=== PATIENT | male | born 1970 | race Caucasian/White ===

== ENCOUNTER 2022-01-28 17:42 | Emergency (ER) | payer OTHER, SELFPAY ==
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
--- NOTE | ~2022-01-28 | XR_ITS ---
EXAMINATION: XR hand LT min 3V DATE: 01/28/2022 18:25 INDICATION: Left thumb injury TECHNIQUE: Posteroanterior, oblique and lateral views of the left hand were obtained. COMPARISON: None. FINDINGS: Alignment is normal. No fracture. Mild osteoarthritis at the first carpometacarpal, metacarpophalange al and interphalangeal joints. 1-2 mm metallic foreign body projecting over the relatively superficia l soft tissues palmar to the capitate. Soft tissues are otherwise unremarkable. IMPRESSION: 1. 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 No acute osseous abnormality. 2. Small metallic foreign body projecting over the palmar soft tissues near the base of the hand. Reviewed, dictated and finalized at location A. IMPRESSION: 1. 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 No acute osseous abnormalit y. 2. Small metallic foreign body projecting over the palmar soft tissues near the base of the hand.
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
[2022-01-28 17:43] VITALS: BP 168/111; PULSE 98; RESP 18; TEMP 37.3; O2SAT 100
[2022-01-28 17:47] VITALS: BP 151/92; PULSE 95; RESP 22; O2SAT 99
[2022-01-28 18:12] VITALS: PULSE 95
[2022-01-28] MEDS: SODIUM CHLORIDE 0.9% IV 1,000 ML 999 ML IV CONT (18:29)
[2022-01-28 18:32] LABS: Basophils Absolute Auto 0.1 K/mm3 (0.0-0.1); Basophils Percent Auto 1.2 % (0.2-1.2); Eosinophils Absolute Auto 0.2 K/mm3 (0-0.3); Eosinophils Percent Auto 2.5 % (0-4.4); Hemoglobin 15.8 g/dL (14.0-18.0); Immature Granulocyte Absolute 0.13 K/mm3 (0.00-0.031); Immature Granulocyte Percent A 1.7 % (0-0.5); Lymphocytes Absolute Auto 2.55 K/mm3 (0.9-3.2); Lymphocytes Percent Auto 34.2 % (18.3-44.2); Mean Corpuscular HGB Conc 34.3 g/dl (32-36); Mean Corpuscular Hemoglobin 30.6 pg (26-34); Mean Platelet Volume 8.7 fl (7.4-10.4); Monocytes Absolute Auto 0.7 K/mm3 (0.1-0.6); Neutrophils Absolute Auto 3.8 K/mm3 (1.3-6.7); Neutrophils Percent Auto 51.4 % (45.5-73.1); Platelet Count Result 229 k/mm3 (150-375); Red Blood Count 5.17 M/mm3 (4.6-6.20); Red Cell Distribution Width 12.8 % (11.5-14.5); White Blood Count 7.5 K/mm3 (4.5-10.0)
[2022-01-28 18:42] LABS: Alanine Aminotransferase 23 U/L (6-50); Albumin Level 4.6 g/dL (3.5-5.1); Alkaline Phosphatase 74 U/L (38-126); Anion Gap 9 mmol/L (8-16); Aspartate Amino Transferase 43 U/L (17-59); Bilirubin,Total 0.7 mg/dL (0.2-1.3); Blood Urea Nitrogen 16 mg/dL (9-20); Calcium 9.5 mg/dL (8.4-10.2); Carbon Dioxide 28 mmol/L (22-30); Chloride 102 mmol/L (98-107); Estimated CRCL calculation 71 ml/min; Estimated Glomerular Filt Rate > 60; Glucose 110 mg/dL (65-110); Potassium 3.8 mmol/L (3.4-5.0); Sodium 139 mmol/L (137-145)
[2022-01-28] MEDS: TETANUS,DIPHTHERIA,AC PERTUSSIS ADULT (0.5 ML) BOOSTRIX IM (18:44)
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
--- NOTE | 2022-01-28 19:01 | PC.NURSE ---
Pt removed his c collar.
[2022-01-28 20:14] VITALS: PULSE 77; RESP 13; O2SAT 99
[2022-01-28] MEDS: MORPHINE SULFATE (*CRX) 4 MG/ML INJ IV PUSH (20:17)
[2022-01-28] MEDS: ONDANSETRON INJ 4 MG/2 ML VIAL IV PUSH (20:17)
[2022-01-28 22:05] VITALS: BP 128/73; PULSE 91; RESP 18; O2SAT 95
== END 2022-01-28 22:10 | disposition home or self-care (01) ==
PROVIDERS: Emergency Provider General Practice
DX: S02.2XXA Fracture of nasal bones, initial encounter for closed fracture (principal); S32.592A Other specified fracture of left pubis, initial encounter for closed fracture; S61.012A Laceration without foreign body of left thumb without damage to nail, initial encounter; S01.511A Laceration without foreign body of lip, initial encounter; S80.212A Abrasion, left knee, initial encounter; S60.512A Abrasion of left hand, initial encounter; S01.21XA Laceration without foreign body of nose, initial encounter; S60.552A Superficial foreign body of left hand, initial encounter; Z23 Encounter for immunization; M47.812 Spondylosis without myelopathy or radiculopathy, cervical region; K05.6 Periodontal disease, unspecified; M18.9 Osteoarthritis of first carpometacarpal joint, unspecified; M19.042 Primary osteoarthritis, left hand; V23.4XXA Motorcycle driver injured in collision with car, pick-up truck or van in traffic accident, initial encounter
CPT/HCPCS: 12001; 36415; 70450; 70486; 71045; 72125; 73130; 73502; 73564; 74177; 80053; 85025; 90471; 90714; 90715; 96361; 96374; 96375; 99284; J2270; J2405; J7030; Q9967

== ENCOUNTER 2022-02-05 10:21 | Emergency (ER) | payer OTHER, SELFPAY ==
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
[2022-02-05 10:33] VITALS: BP 145/89; PULSE 76; RESP 16; TEMP 36.3; O2SAT 99
== END 2022-02-05 11:05 | disposition home or self-care (01) ==
PROVIDERS: Emergency Provider Nurse Practitioner Family
DX: Z48.00 Encounter for change or removal of nonsurgical wound dressing (principal); Z48.01 Encounter for change or removal of surgical wound dressing; F17.210 Nicotine dependence, cigarettes, uncomplicated
CPT/HCPCS: 99213; G0463

== ENCOUNTER 2022-02-08 12:15 | Outpatient (CLI) | payer OTHER, SELFPAY ==
--- NOTE | ~2022-02-08 | XR_ITS ---
EXAMINATION: XR pelvis 1-2V INDICATION: Left hip pain, pelvic fracture follow-up TECHNIQUE: AP view the pelvis is obtained. COMPARISON: CT, 01/28/2022 FINDINGS: There is calcified callus formation at the sites of the left superior and inferior pubic ra mi fractures. Bone alignment is normal. No new fracture is identified. There are phleboliths of the r ight pelvis. The soft tissues are unremarkable. IMPRESSION: 1. Left superior and inferior pubic rami fractures with routine healing. Reviewed, dictated and finalized at location A.
== END 2022-02-08 12:16 | disposition home or self-care (01) ==
PROVIDERS: PCP Orthopaedic Surgery; Visit Provider Orthopaedic Surgery
DX: S39.93XA Unspecified injury of pelvis, initial encounter (principal); X58.XXXA Exposure to other specified factors, initial encounter
CPT/HCPCS: 72170

== ENCOUNTER 2022-03-08 11:52 | Outpatient (CLI) | payer OTHER, SELFPAY ==
--- NOTE | ~2022-03-08 | XR_ITS ---
EXAM: XR pelvis 1-2V DATE: 03/08/2022 11:58 HISTORY: Follow up . COMPARISON: 02/08/2022. FINDINGS: Normal mineralization. Healing left obturator ring fracture. No acute fracture or dislocat ion. No lytic or blastic lesion. Pelvic and hip enthesopathy. Mild bilateral hip osteoarthritis. No e rosion or periosteal change. Pelvic phleboliths. IMPRESSION: Healing left obturator ring fracture, in stable alignment. Reviewed, dictated and finalized at location K. FACTURING APPLICATIONS ENGINEER
== END 2022-03-08 11:53 | disposition home or self-care (01) ==
LOC: ANHBWCIMG 11:53
PROVIDERS: Visit Provider Orthopaedic Surgery
DX: S32.89XD Fracture of other parts of pelvis, subsequent encounter for fracture with routine healing (principal); X58.XXXD Exposure to other specified factors, subsequent encounter
CPT/HCPCS: 72170

== ENCOUNTER 2022-04-12 12:13 | Outpatient (CLI) | payer OTHER, SELFPAY ==
--- NOTE | ~2022-04-12 | XR_ITS ---
AP view of the pelvis Clinical history: Follow-up of pelvic fracture COMPARISON: 03/08/2022 Findings: Fractures of the left superior and inferior pubic rami are present, with increased callus f ormation as compared to prior exam. Fracture lines are still visible as discrete lucencies.. Bilatera l hip and SI joint spaces are preserved. Soft tissues are unremarkable. Impression: Increased callus formation about superior and inferior left pubic rami fractures since prior exam. Reviewed, dictated and finalized at location M. FORCE STAFFING ADVISOR Impression: Increased callus formation about superior and inferior left pubic rami fracture s since prior exam.
== END 2022-04-12 12:14 | disposition home or self-care (01) ==
LOC: ANHBWCIMG 12:14
PROVIDERS: Visit Provider Orthopaedic Surgery
DX: M89.8X8 Other specified disorders of bone, other site (principal)
CPT/HCPCS: 72170